=== PATIENT | female | born 2000 | race Caucasian/White ===

== ENCOUNTER → 2024-09-23 11:35 | Outpatient (CLI) | payer OTHER, SELFPAY ==
[2024-09-23 12:25] LABS: Add Manual Diff / Slide Review NO; Basophils Absolute Auto 0 /uL (0-100); Basophils Percent Auto 0.2 % (0-2); Eosinophils Absolute Auto 100 /uL (0-450); Eosinophils Percent Auto 1.1 % (2-4); Hematocrit 37.1 % (36-46); Lymphocytes Absolute Auto 2200 /uL (1100-4500); Lymphocytes Percent Auto 19.1 % (25-40); Mean Corpuscular HGB Conc 34.9 % (30-36); Mean Corpuscular Hemoglobin 31.5 PG (26-34); Mean Corpuscular Volume 90.2 fL (80-100); Monocytes Absolute Auto 600 /uL (0-900); Monocytes Percent Auto 5.3 % (3-14); Neutrophils Absolute Auto 8700 /uL (1500-7000); Neutrophils Percent Auto 74.3 % (50-75); Platelet Count 327 X10^3/uL (150-400); Red Blood Cell Count 4.11 X10^6/uL (4.0-5.2); Red Cell Distribution Width 12.5 % (11.6-14.8); White Blood Cell Count 11.7 X10^3/uL (4.5-11.0)
[2024-09-23 12:55] LABS: Natera Collection Specimen Collected
[2024-09-23 15:33] LABS: Appearance Urine UA CLEAR; Bilirubin Urine UA NEGATIVE (NEGATIVE); Color Urine UA YELLOW; Glucose Urine UA NEGATIVE (Negative); Ketones Urine UA TRACE (NEGATIVE); Leukocyte Esterase Urine UA NEGATIVE (NEGATIVE); Nitrite Urine UA NEGATIVE (Negative); Occult Blood Urine UA NEGATIVE (Negative); Protein Urine UA NEGATIVE (Negative); Specific Gravity Urine UA 1.025 (1.000-1.035); Urobilinogen Urine UA 0.2 E.U./dL (0.2)
[2024-09-23 15:34] LABS: pH Urine UA 6.5 (4.5-8.0)
[2024-09-23 16:07] LABS: Hepatitis B Surface Antigen NEGATIVE s/c (NEGATIVE); Rubella Antibody IgG 12.2 IU/mL (>15)
[2024-09-23 16:23] LABS: HIV 1 & 2 Ab/Ag 4th Gen Combo NEGATIVE (NEGATIVE); Hep C Virus Ab w/Reflex Quant NEGATIVE s/c (NEGATIVE)
[2024-09-25 08:11] LABS: RPR Screen Non Reactive (Non Reactive)
[2024-09-25 11:36] LABS: Varicella IgG Antibody Reactive (Non Reactive)
== END ==
PROVIDERS: PCP Nurse Practitioner Family; Referring Provider Family Medicine; Visit Provider Family Medicine
DX: Z34.01 Encounter for supervision of normal first pregnancy, first trimester (principal)
CPT/HCPCS: 36415; 80055; 81003; 86787; 86803; 86850; 86900; 86901; 87086; 87389

== ENCOUNTER → 2024-12-04 08:16 | Outpatient (CLI) | payer OTHER, SELFPAY ==
--- NOTE | 2024-12-04 08:17 | DI.US.S_ITS ---
PROCEDURE: US OB >= 14 WEEKS FETUS INDICATIONS: anatomy OUTSIDE/PRIOR DATING DATA: Last menstrual period (LMP): A 1424 LMP-based estimated date of delivery (JUAQUIN): 04/21/2025 First dating scan (date and location): 09/14/2024 Estimated date of delivery (JUAQUIN) from first dating scan: 04/26/2025 The calculations are made using the working JUAQUIN of 04/21/2025. TECHNIQUE: Real-time scanning was performed of the fetus, with image documentation and biometric measurements. Endovaginal scanning: Not performed COMPARISON: None. FINDINGS: General: A single living intrauterine gestation is present. Presentation: Breech Placenta: Placental position is posterior, without previa. Amniotic fluid index: 14.0 cm, normal range is 5-24 cm. Single deepest vertical pocket is 4.4 cm. heart rate: 153 beats per minute. Maternal cervical canal: Closed and measures 5.5 cm in length. biometrics: Biparietal diameter: 4.8 cm, 20 weeks, 4 days. Head circumference: 17.8 cm, 20 weeks, 2 days. Abdominal circumference: 15.6 cm, 20 weeks, 5 days. Femur length: 3.2 cm, 19 weeks, 6 days. Clinically estimated gestational age: 20 weeks, 2 days. Composite gestational age from present scan: 20 weeks, 3 days. Estimated weight and percentile: 346 grams, 47 percent. Anatomic survey: Neuro: Ventricles are non-dilated at less than 10 mm. Cisterna magna is normal at 3-11 mm. Cerebellum is normal in size and morphology. Nuchal skin fold: Normal at less than 6 mm between 14-21 weeks gestational age. Face: Nose and lips, facial profile are normal. Spine: No evidence for spina bifida. Heart: Four-chamber heart and ventricular outflow tracts are suboptimally seen and are grossly within normal limits. Diaphragm: Diaphragm is intact. Stomach: Left-sided stomach is present. Kidneys: No hydronephrosis. Normal is less than 5 mm in 2nd trimester, less than 7 mm in 3rd trimester. Cord: 3-vessel cord has orthotopic insertion. Bladder: Normal in size. Extremities: All 4 extremities identified. IMPRESSION: 1. Single live intrauterine gestation with fetus in breech presentation. heart rate is 153 beats per minute. Normal EMETERIO at 14 cm. Cervix is closed and measures 5.5 cm in length. 2. Normal growth. Estimated weight is at 47 percent. 3. Suboptimal visualization of four-chamber heart and right ventricular outflow tract. Rest of the anatomic survey is normal. We strive to produce accurate, complete, and clear reports of imaging services. To assist us in improving patient care, this report was composed using standard report templates and voice recognition software. Therefore, it may contain abnormal punctuation, insertions and/or omissions. Occasional wrong-word or sound-alike substitutions may occur. Though we review the report and make efforts to correct it, we do recommend that the report be read carefully in proper context to recognize any text inaccuracies. Dictated by: Kye Ventura M.D. on 12/04/2024 at 14:32 Approved by: Kye Ventura M.D. on 12/04/2024 at 14:36
== END ==
LOC: US 08:17
PROVIDERS: PCP Nurse Practitioner Family; Referring Provider Family Medicine; Visit Provider Family Medicine
DX: Z34.82 Encounter for supervision of other normal pregnancy, second trimester (principal); Z3A.20 20 weeks gestation of pregnancy
CPT/HCPCS: 76811

== ENCOUNTER → 2024-12-25 08:12 | Outpatient (CLI) | payer OTHER, SELFPAY ==
--- NOTE | 2024-12-25 08:12 | DI.US.S_ITS ---
PROCEDURE: US OB FOLLOW UP INDICATIONS: RE-EVALUATE 4CH, RVOT OUTSIDE/PRIOR DATING DATA: Last menstrual period (LMP): 07/15/2025. LMP-based estimated date of delivery (JUAQUIN): 04/21/2025. First dating scan (date and location): 09/14/2024. Estimated date of delivery (JUAQUIN) from first dating scan: 04/26/2025. The calculations are made using the clinical JUAQUIN of 04/21/2025. TECHNIQUE: Real-time scanning was performed of the fetus, with image documentation. Endovaginal scanning: Not performed COMPARISON: [facility], OB >= 14 WEEKS FETUS, 12/04/2024, 8:28. FINDINGS: A single living intrauterine gestation is present. Presentation: Vertex. Placenta: Placental position is posterior, without previa. Amniotic fluid index: 14.7 cm, normal range is 5-24 cm. Single deepest vertical pocket is 5.1 cm. heart rate: 153 beats per minute. Maternal cervical canal: 4.1 cm long. Normal lower limit is 2.5 cm. Clinically estimated gestational age: 23 weeks, 2 days Four-chamber heart and outflow tracts are within normal limits. IMPRESSION: Single live intrauterine consistent with 23 weeks and 4 days. Normal appearance of the four-chamber heart and outflow tracts. Dictated by: Dilan Villa M.D. on 12/25/2024 at 12:24 Approved by: Dilan Villa M.D. on 12/25/2024 at 12:26
== END ==
PROVIDERS: PCP Nurse Practitioner Family; Referring Provider Family Medicine; Visit Provider Family Medicine
DX: Z34.82 Encounter for supervision of other normal pregnancy, second trimester (principal); Z3A.23 23 weeks gestation of pregnancy
CPT/HCPCS: 76816

== ENCOUNTER → 2025-02-05 09:00 | Outpatient (CLI) | payer OTHER, SELFPAY ==
[2025-02-05 10:36] LABS: GTT (PREG) 1 Hour PP 50gm Dose 99 mg/dL (76-139)
== END ==
PROVIDERS: PCP Nurse Practitioner Family; Referring Provider Family Medicine; Visit Provider Family Medicine
DX: Z34.93 Encounter for supervision of normal pregnancy, unspecified, third trimester (principal); Z3A.28 28 weeks gestation of pregnancy
CPT/HCPCS: 36415; 82950

== ENCOUNTER → 2025-03-26 10:45 | Outpatient (CLI) | payer OTHER, SELFPAY ==
[2025-03-27 12:18] LABS: Strep Grp B PCR NEG for Grp B Strep
== END ==
PROVIDERS: PCP Nurse Practitioner Family; Visit Provider Family Medicine
DX: Z36.85 Encounter for antenatal screening for Streptococcus B (principal); Z3A.36 36 weeks gestation of pregnancy
CPT/HCPCS: 87653

== ENCOUNTER 2025-04-21 12:59 | Inpatient (IN) | payer OTHER, SELFPAY ==
--- NOTE | 2025-04-21 16:57 | PM.OBHP.IH.1 ---
OB HPI Date/Time Date of admission: 04/21/25 Date Patient Seen: 04/21/25 Time Patient Seen: 17:02 History of Present Condition Chief complaint: LABOR CHECK JUAQUIN Calculator Estimated Delivery Date Method Current WG Current Estimate 04/21/25 LMP (Certain) 40w 0d Other Estimates 04/26/25 Ultrasound #1 39w 2d Estimated Gestational Age (weeks): 40w0d : 3 Para: 1 Narrative: Pt is a 25yo at 40w0d here with regular contractions. Pt reports contractions starting at around 10:30am, increasing in frequency and intensity since then. No vaginal bleeding or LOF. She is feeling her baby move regularly. Her has been uncomplicated. care: good care, initiated at week # (8) and pounds weight gain (23) Dating criteria OB: LMP confirmed by 1st trimester US Ultrasounds: normal 1st trimester US and normal mid trimester US Obstetrical complications: none Medical complications OB: none Preadmission Labs Last OB Lab Results: Blood Type A Positive 09/23/24 12:00 Antibody Screen Negative 09/23/24 12:00 Hct 37.0 % (36-46) 04/21/25 16:30 Hgb 12.7 g/dL (12.0-16.0) 04/21/25 16:30 Hep Bs Antigen Negative s/c (NEGATIVE) 09/23/24 12:00 Hepatitis C Antibody Negative s/c (NEGATIVE) 09/23/24 12:00 Rubella Antibody 12.2 IU/mL (>15) L 09/23/24 12:00 VZV IgG Antibody Reactive (Non Reactive) 09/23/24 12:00 Glucose 1 Hr 50 gm 99 mg/dL (76-139) 02/05/25 09:05 Group B Strep (PCR) Neg for grp b strep 03/26/25 10:45 -: Urine: negative Genetic Screens: Cell-free DNA: Normal External Labs -: Urine: negative Prior (ies) Past Pregnancies Del. Date GA/Weeks Labor Lgth Wt Sex Route Outcome Anesthesia Place Delv Breastfeed Preg Comp Name 01/24/23 40.5 27 7 lb 4 oz Female vaginal live - full term epidural [facility] 3 months, pumped after ~2-3 wk none Dolores Delivery Date: 01/24/23 Last Updated by: Haley Ricci RN latch issues Evaluation Evaluation Baseline heart rate: 130 Variability: Moderate (11-25) monitor accelerations: Present Monitor Decelerations: Absent Contraction Frequency (minutes): 4 Uterine Contraction Intensity: Strong/Firm Status: Category l Dilation (cm): 4 Effacement (%): 70 station: -2 PFSH Surgical History History of skin surgery Hx of tonsillectomy Family History Grandmother Pancreatic cancer Osteoarthritis Father Prostate cancer Sister Hypothyroidism Mother Family estrangement Social History marital status: number of children: 1 household members: spouse, family and children lives independently: Yes caregiver/support person: Yes housing: house (base housing) pets and animals: Yes (dogs) education level: college (some college) 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 current occupational exposures/hazards: No special donita needs: No travel history: over 6 months ago seatbelt use: always water heater temp set < 120 deg: Yes working smoke detector in home: Yes fire extinguisher in home: Yes carbon monox detector in home: Yes firearms in home: No do you feel safe at home: Yes ( going through ETOH treatment program) Tobacco: How many years used: 5 (off and on, estimates ~3 years on vaping) second hand exposure: No alcohol intake: former (occasionally when not ; tries not to have ETOH in the house d/t 's issues) substance use type: marijuana (after 1st delivery, not recently) during the past year weight has: other (back to non- weight) well-balanced diet: daily or most days daily servings fruits/ve-4 caffeine: Yes (2-shots espresso daily) Type(s) of exercise: none, weight lifting and yoga Meds Home Medications and Allergies Home Medications Medication Instructions Recorded Confirmed Type vitamin-ferrous sulfate tab PO 09/10/24 04/16/25 History 27 mg iron-folic acid 0.8 mg tablet ondansetron 4 mg disintegrating 4 mg PO Q8H PRN nausea and 09/14/24 04/16/25 Rx tablet vomiting #30 tabs albuterol sulfate 90 mcg/actuation 2 inh inhalation Q6H PRN shortness 02/26/25 04/16/25 Rx breath activated powder inhaler of breath or wheezing #1 ea Allergies Allergy/AdvReac Type Severity Reaction Status Date / Time No Known Drug Allergies Allergy Verified 04/16/25 10:41 OB Exam Resp Effort & Inspection: normal respiratory effort Auscultation: clear to auscultation bilaterally Cardio Rate: regular rate Rhythm: regular rhythm Heart Sounds: S1 normal, S2 normal and no murmurs GI Inspection: non-distended Palpation: Yes soft and No tender Presentation: vertex Objective Labs 04/21/25 16:30 Assessment and Plan Assessment and Plan Assessment and Plan narrative: 25yo at 40w0d here in active labor. GBS negative, Rh positive. - Expectant management, anticipate - FHT reassuring - GBS negative, no prophylaxis - Epidural for pain control now Time-Based Coding :: [TOTAL MINUTES] spent with patient and on the chart (including review of chart, obtaining history, exam, reviewing outside data, placing orders, documenting exam and treatment plan, and counseling patient) on [DATE].
[2025-04-21 17:00] LABS: Add Manual Diff / Slide Review NO; Basophils Absolute Auto 0 /uL (0-100); Basophils Percent Auto 0.2 % (0-2); Eosinophils Absolute Auto 0 /uL (0-450); Eosinophils Percent Auto 0.2 % (2-4); Hemoglobin 12.7 g/dL (12.0-16.0); Lymphocytes Absolute Auto 1900 /uL (1100-4500); Lymphocytes Percent Auto 16.5 % (25-40); Mean Corpuscular HGB Conc 34.3 % (30-36); Mean Corpuscular Hemoglobin 31.6 PG (26-34); Monocytes Absolute Auto 500 /uL (0-900); Monocytes Percent Auto 4.2 % (3-14); Neutrophils Absolute Auto 8800 /uL (1500-7000); Neutrophils Percent Auto 78.9 % (50-75); Platelet Count 251 X10^3/uL (150-400); Red Blood Cell Count 4.03 X10^6/uL (4.0-5.2); White Blood Cell Count 11.2 X10^3/uL (4.5-11.0)
[2025-04-21] MEDS: LACTATED RINGERS 1,000 ML 100 ML IV ×2 (17:30→18:16)
--- NOTE | 2025-04-21 17:40 | PM.AN.REGBLK ---
Regional Block Pre-procedure Procedure: Continuous Lumbar Epidural for L&D Attending OB provider: Dayna Parrish PMH/ROS narrative: requesting SANTOSH for labor pain. PMH negative with the exception of induced GERD. PSH/Anesthesia history narrative: Uncomplicated SANTOSH with previous vaginal delivery in 2022. Tonsillectomy as a child without anesthetic complication. Exam narrative: See pre-anesthesia eval. ASA Class: II Labs: Hct 37.0 % (36-46) 04/21/25 16:30 Plt Count 251 X10^3/uL (150-400) 04/21/25 16:30 Medications: Current Medications Generic Name Dose Route Start Last Admin Trade Name Freq PRN Reason Stop Dose Admin Butorphanol Tartrate 0.5 mg 04/21/25 17:35 Butorphanol 1 Mg/Ml Vial IV 04/22/25 17:35 Q3HR PRN PRURITUS Calcium Carbonate 1,000 mg 04/21/25 16:43 Calcium Carbonate 500 Mg Tab PO Q2HR PRN Dyspepsia Carboprost Tromethamine 250 mcg 04/21/25 16:43 Carboprost 250 Mcg/Ml Ampul IM Q90M PRN Bleeding Diphenhydramine HCl 25 mg 04/21/25 17:35 Diphenhydramine 50 Mg/Ml Vial IV 04/22/25 17:35 Q3HR PRN PRURITUS Fentanyl 50 mcg 04/21/25 16:43 Fentanyl 100 Mcg/2 Ml Inj IV Q1H PRN Pain, Moderate (4-6) Oxytocin/Lactated Ringer's 30 unit in 500 mls @ 2 mls/hr 04/21/25 16:45 Oxytocin Premix IV TITRATE ALAN Protocol 2 MILLIUNIT/MIN Lactated Ringer's 1,000 mls @ 100 mls/hr 04/21/25 16:45 Lactated Ringers IV 04/22/25 02:44 CONT ALAN Oxytocin/Lactated Ringer's 30 unit in 500 mls @ 200 mls/hr 04/21/25 16:43 Oxytocin Premix IV CONT PRN Bleeding Protocol Tranexamic Acid 1,000 mg/ 100 mls @ 600 mls/hr 04/21/25 16:43 Sodium Chloride IV NOW PRN Bleeding Lidocaine HCl 20 ml 04/21/25 16:43 Lidocaine 1% 20 Ml INJ INTRA-OP PRN Post Delivery Methylergonovine Maleate 0.2 mg 04/21/25 16:43 Methylergonovine 0.2 Mg/Ml Vial IM NOW PRN Bleeding Methylergonovine Maleate 0.2 mg 04/21/25 16:43 Methylergonovine 0.2 Mg Tablet PO Q6HR PRN Heavy Bleeding Metoclopramide HCl 10 mg 04/21/25 17:35 Metoclopramide 10 Mg/2 Ml Inj IV 04/22/25 17:35 Q4H PRN Nausea Mineral Oil 30 ml 04/21/25 16:43 Mineral Oil 30 Ml Udc TOP PRN PRN Version Misoprostol 400 mcg 04/21/25 16:43 Misoprostol 200 Mcg Tablet SL NOW PRN Bleeding Misoprostol 800 mcg 04/21/25 16:43 Misoprostol 200 Mcg Tablet KS NOW PRN Bleeding Nalbuphine HCl 5 mg 04/21/25 17:35 Nalbuphine 20 Mg/Ml Ampul IV Q6H PRN PRURITIS Naloxone HCl 0.2 mg 04/21/25 16:43 Naloxone 0.4 Mg/Ml Vial IV Q2MIN PRN Opiate Reversal Naloxone HCl 0.4 mg 04/21/25 17:35 Naloxone 0.4 Mg/Ml Vial IV Q2MIN PRN Opiate Reversal Ondansetron HCl 4 mg 04/21/25 16:43 Ondansetron 4 Mg/2 Ml Inj IV Q4HR PRN Nausea And Vomiting Ondansetron HCl 4 mg 04/21/25 17:35 Ondansetron 4 Mg/2 Ml Inj IV 04/22/25 17:35 Q6HR PRN Nausea Oxytocin 10 unit 04/21/25 16:43 Oxytocin 10 Unit/Ml Vial IM NOW PRN Bleeding Allergies: Allergies Allergy/AdvReac Type Severity Reaction Status Date / Time No Known Drug Allergies Allergy Verified 04/16/25 10:41 Procedure Insertion date: 04/21/25 Insertion time: 17:21 Prep/Local: 1% lidocaine (5mL. CHG to back for skin prep) Interspace: L4/5 Patient position: sitting Needle: 18 gauge [place] Loss of resistance with: saline [place] at (cm): 6 Catheter placed at SKIN (cm): 12 Catheter in SPACE (cm): 6 Sensory level: T10 Insertion: No CSF, No Blood, No Paresthesia with insertion, No Paresthesia with injection and No Test dose reaction Initial Medications TEST DOSE time: 17: TEST DOSE: 1.5% lidocaine with epinephrine 1:200k (mL): 3 BOLUS DOSE time: : BOLUS DOSE (mL): 8 BOLUS DOSE med: other (infusate) Infusion INFUSION: 0.125% bupivacaine and with fentanyl 2 mcg/mL Initial rate (mL/hr): 10 Post-procedure Anesthesia date START: 04/21/25 Anesthesia time START: 17:12 Anesthesia date END: 04/21/25 Anesthesia time END: : Post-procedure Anesthesia Assessment: Yes CV function: HR/BP stable, Yes Resp function: RR/sat/airway adequate, Yes Post-op hydration adequate, Yes Pain control adequate, Yes Nausea & vomiting absent, Yes Temperature > 36 C, Yes Mental status appropriate and No Anesthesia complications
[2025-04-21] MEDS: OXYTOCIN PREMIX 30 UNIT/500 ML PLAST..BAG 200 UNIT IV (21:29)
--- NOTE | 2025-04-21 21:44 | PM.OBPRVD ---
Labor & Delivery Delivery date: 04/21/25 Delivery Time: 21:25 Cervical ripening method: none Induction method: none Delivery augmentation: rupture of membranes Delivery monitor: external FHT and external uterine Route of delivery: Episiotomy description: None L&D Laceration Description: Perineal - 2nd Degree Quantitative Blood Loss: 200 Anesthesia Type: Epidural Complications: None Narrative: PROCEDURE: at 40w0d presented in active labor and was admitted to Labor and Delivery. The patient progressed through the 1st stage over 1 hours. AROM occured at 18:10 with clear fluid. Pain was controlled with an epidural. The patient progressed through the 2nd stage over 16 minutes and delivered a viable male infant with APGARs 8/9 at 21:25 via without complications. The cord was cut and clamped after it stopped pulsating. The placenta delivered with gentle cord traction, and appeared complete. The perineum and vagina were inspected with 2nd degree perineal laceration repaired with 3-O Chromic. Needle and sponge counts were correct.? The vagina was inspected and no items were left in situ. Arabella was doing well with Vamsi Gutierrez, her and her , Vamsi at bedside. PREPROCEDURE DIAGNOSIS: Intrauterine at 40w0d GBS negative RH positive POSTPROCEDURE DIAGNOSIS: Intrauterine at 40w0d, delivered Same as preprocedure Baby 1: gender: Male Presentation: vertex Position: Left Occiput Anterior Placenta delivery description: Spontaneous Cord Vessel Description: 3 Vessels and Nuchal Cord score (1 min): 8 score (5 min): 9 weight: 7 lb 10.859 oz Plan for aftercare: Routine care
[2025-04-21] MEDS: ACETAMINOPHEN 325 MG TABLET 650 MG PO (22:55)
[2025-04-21] MEDS: IBUPROFEN 600 MG TABLET PO (22:55)
[2025-04-21] MEDS: DERMOPLAST SPRAY 20% 60 ML 1 SPRAY TOP (23:45)
[2025-04-22] MEDS: ACETAMINOPHEN 325 MG TABLET 650 MG PO ×2 (09:03→16:37)
[2025-04-22] MEDS: IBUPROFEN 600 MG TABLET PO ×2 (09:03→16:36)
--- NOTE | 2025-04-22 10:04 | PM.OBDS.1 ---
Discharge Providers Provider Date of admission: 04/21/25 12:59 Discharge Date: 04/22/25 Primary care physician: VIKTORIYA Eckert Consults: 04/22/25 21:43 Consult to Hand Kiss Setter Routine Comment: Discharge provider: Dayna Parrish MD Summary Hospital Course Date Patient Seen: 04/22/25 Diagnoses: Intrauterine at 40w0d GBS negative RH positive Hospital Course: The pt presented in active labor. She had an epidural for pain control. AROM was performed with clear fluid present. She progressed to complete and had an uncomplicated of a viable baby boy. A 2nd degree perineal laceration was repaired. , there were no complications. At the time of discharge she was voiding, ambulating, and passing flatus without difficulty. Her lochia was decreasing appropriately. Her pain was well controlled. She was with good latch. She will f/u in 6 weeks for check. Peripartum Data Infant Delivery Method: Natural Vaginal Laceration Description: Perineal - 2nd Degree Episiotomy description: None Procedures: Spontaneous vaginal delivery complications: none 1: Gender: Male Disposition of : home Time Spent with Patient Time attestation: Total time spent providing and/or coordinating discharge services: Objective Labs 04/21/25 16:30 Labs: Laboratory Results - last 24 hr 04/21/25 16:30 WBC 11.2 H RBC 4.03 Hgb 12.7 Hct 37.0 MCV 92.0 MCH 31.6 MCHC 34.3 RDW 14.0 Plt Count 251 Neut % (Auto) 78.9 H Lymph % (Auto) 16.5 L [place] % (Auto) 4.2 Eos % (Auto) 0.2 L Baso % (Auto) 0.2 Neut # (Auto) 8800 H Lymph # (Auto) 1900 [place] # (Auto) 500 Eos # (Auto) 0 Baso # (Auto) 0 Blood Type A Positive Antibody Screen Negative Exam Narrative Exam Narrative: Gen: NAD, sitting comfortably in bed, appears well CV: RRR, no murmurs Resp: clear to auscultation bilaterally Abd: soft, appropriately tender, fundus firm and below the umbilicus, nondistended Ext: no edema Discharge Plan Discharge Plan Patient Disposition: Home Discharge orders & Medications Prescriptions: New acetaminophen 325 mg Tablet 650 mg PO Q6HR PRN (Reason: Pain, Mild (1-3)) Qty: 30 0RF ibuprofen 600 mg Tablet 600 mg PO Q6HR PRN (Reason: Pain, Mild (1-3)) Qty: 30 0RF Continued albuterol sulfate 90 mcg/actuation aerosol powdr breath activated 2 inh inhalation Q6H PRN (Reason: shortness of breath or wheezing) Qty: 1 0RF vit-ferrous sulfat-FA 27 mg iron- 0.8 mg tablet See Rx Instructions .ROUTE .COMPLEX Rx Instructions: Per MD orders Discontinued ondansetron 4 mg tablet,disintegrating 4 mg PO Q8H PRN (Reason: nausea and vomiting) Qty: 30 2RF Follow up/Referrals: Cony Hickman ARNP [Primary Care Provider] - Dayna Parrish MD [Physician] - 6 Weeks Diet/Activity/Treatments Diet: Diet as Tolerated and Regular Skin/Wound/Dressing Care Report to your healthcare provider any signs of infection, such as:: chills, fever, increased pain and unusual drainage Visit Report/Discharge Packet Instructions: DI for Labor and Delivery, Vaginal Stand Alone Forms: Discharge: Care, Patient Portal/API, Stroke Signs & Symptoms Discharge Data Primary Care Provider: Cony Hickman Discharges patient from system. Discharge Date/Time: 04/22/25 18:55
[2025-04-22] MEDS: MEASLES,MUMPS,RUBELLA VACC/PF 0.5 ML VIAL SUBCUT (16:58)
[2025-04-22 17:35] VITALS: BP 90/66; PULSE 74; RESP 12; TEMP 37.3
== END 2025-04-22 18:55 | disposition home or self-care (01) | DRG 807 ==
PROVIDERS: Admitting Provider Family Medicine; PCP Nurse Practitioner Family; Referring Provider Family Medicine; Visit Provider Family Medicine
DX: O70.1 Second degree perineal laceration during delivery (principal); Z37.0 Single live birth; Z3A.40 40 weeks gestation of pregnancy; O99.62 Diseases of the digestive system complicating childbirth; K21.9 Gastro-esophageal reflux disease without esophagitis
CPT/HCPCS: 59025; 59050; 59400; 84112; 85025; 86850; 86900; 86901; G0379; J2590